=== PATIENT | female | born 2000 | race Hispanic/Latino ===

== ENCOUNTER 2022-06-15 06:12 | Emergency (ER) | payer SELFPAY ==
[2022-06-15] MEDS ORDERED: Mag-Al Plus 1200 MG/1200 MG/120 MG/30 ML UDCUP ONE (06:27)
[2022-06-15] MEDS ORDERED: Lidocaine Viscous Sol 2% 15 ml UD Cup ONE (06:28)
[2022-06-15 06:53] LABS: #Basophils 0.1 10x3/uL (0.0-0.2); #Eosinphils 0.2 10x3/uL (0.0-0.5); #Monocytes 0.8 10x3/uL (0.0-1.1); %Basophils 0.5 % (0.0-2.0); %Eosinophils 1.9 % (0.0-6.0); %Lymphocytes 26.7 % (18.0-47.0); %Monocytes 8.4 % (0.0-10.0); %Neutrophils 62.2 % (40.0-75.0); Hemoglobin 11.7 g/dL (12.0-15.5); Mean Corpuscular HGB CONC 31.9 g/dL (32.0-36.0); Mean Corpuscular Hemoglobin 25.4 pg (27.0-33.0); Mean Corpuscular Volume 79.8 fl (81.6-98.3); Mean Platelet Volume 11.7 fl (7.4-10.4); Platelet Count 191 10x3/uL (150-450); RBC Distribution Width 13.3 % (11.5-14.5); White Blood Cell (WBC) Count 9.7 10x3/uL (3.5-10.5)
[2022-06-15 07:21] LABS: ALT (SGPT) 31 U/L (8-55); AST (SGOT) 64 U/L (5-34); Albumin 4.1 g/dL (3.5-5.0); Alkaline Phosphatase 111 U/L (40-100); Anion Gap 16 mmol/L (10-20); BUN (Urea Nitrogen) 11 mg/dL (7.0-18.7); Bilirubin, Total 0.3 mg/dL (0.2-1.2); Calc. Creatinine Clearance 0 mL/min (70-130); Carbon Dioxide 19 mmol/L (22-29); Chloride 107 mmol/L (98-107); Estimated GFR 131; Globulin 3.7 g/dL (2.4-3.5); Glucose 100 mg/dL (70-105); Lipase 9 U/L (8-78); Potassium 3.6 mmol/L (3.5-5.1); Protein, Total 7.8 g/dL (6.0-8.3); Sodium 138 mmol/L (136-145)
[2022-06-15 07:38] LABS: BHCG - Serum Negative (NEGATIVE); Pregs Control Background? CLEAR/WHITE (CLR/WHITE); Pregs Control Bar Appear? YES (CONTROL BAR)
== END 2022-06-15 07:38 | disposition home or self-care (01) ==
LOC: CSHERS 06:12
DX: K29.00 Acute gastritis without bleeding (principal)
CPT/HCPCS: 80053; 83690; 84703; 85025; 99284

== ENCOUNTER 2024-02-14 18:15 | Inpatient (IN) | payer MEDICAID, OTHER, SELFPAY ==
[2024-02-14] MEDS ORDERED: hydrALAZINE 20 MG/ML VIAL SLOW IVP PRN ×2 (18:25→20:11)
[2024-02-14 18:38] VITALS: BMI 24.8
[2024-02-14] MEDS ORDERED: Acetaminophen 500 MG TAB PO PRN (19:20)
[2024-02-14 19:25] LABS: Fetal Membranes Rupture RUPTURE DETECTED (No Rupture)
[2024-02-14] MEDS ORDERED: Ondansetron PF 4 MG/2 ML Vial IVP PRN (20:11)
[2024-02-14] MEDS ORDERED: Promethazine HCl 25 MG/ML VIAL IM PRN (20:11)
[2024-02-14] MEDS ORDERED: Lidocaine 1% (PF) 30 ML VIAL SC PRN (20:11)
[2024-02-14] MEDS ORDERED: Diphenoxylate HCl/Atropine Tablet PO PRN (20:12)
[2024-02-14] MEDS ORDERED: Methylergonovine 0.2 MG/ML VIAL IM PRN (20:12)
[2024-02-14] MEDS ORDERED: Misoprostol 200 MCG TAB PR PRN (20:12)
[2024-02-14] MEDS ORDERED: Carboprost 250 MCG/ML AMP IM PRN (20:12)
[2024-02-14] MEDS ORDERED: Tranexamic Acid 1,000 MG/10 ML VIAL IVP PRN (20:12)
[2024-02-14] MEDS ORDERED: Oxytocin 30 units/NS 500 ML 500 ML IV SCH ×2 (20:15)
[2024-02-14] MEDS: Lactated Ringer's 1,000 ML IV SCH (20:47)
[2024-02-14] MEDS: Penicillin G Potassium 5 MILL.UNITS in Sodium Chloride 0.9% 100 ML IVPB SCH (20:47)
[2024-02-14 21:32] LABS: Hematocrit 32.3 % (34.9-44.5); Mean Corpuscular HGB CONC 34.1 g/dL (32.0-36.0); Mean Corpuscular Hemoglobin 27.9 pg (27.0-33.0); Mean Platelet Volume 13.7 fL (7.4-10.4); Platelet Count 130 10x3/uL (150-450); RBC Distribution Width 12.6 % (11.5-14.5); Red Blood Cell (RBC) Count 3.94 10x6/uL (3.90-5.03); White Blood Cell (WBC) Count 6.4 10x3/uL (3.5-10.5)
[2024-02-14] MEDS: Oxytocin 30 units/NS 500 ML 500 ML IV SCH (21:48)
[2024-02-14 22:07] LABS: HBsAg Index 0.22 S/CO (0-0.99); Hep B Surf Ag - L&D Non-Reactive S/CO (NonReactive)
[2024-02-14 22:08] LABS: Syphilis Antibody Nonreactive (Nonreactive); Syphilis Antibody Index 0.05 S/CO (<1.00 Non-Reactive)
[2024-02-15] MEDS: Penicillin G 2.5 MILL.units 2.5 MILL.UNITS in Premix 1 BAG IVPB SCH (01:09)
[2024-02-15] MEDS: fentaNYL 50 mcg/mL 1 mL Vial SLOW IVP PRN (02:36)
[2024-02-15] MEDS: Penicillin G Potassium 5 MILL.UNITS VIAL ONE (02:45)
[2024-02-15] MEDS: fentaNYL/Ropivacaine Epidural 100 ML ONE (05:03)
[2024-02-15] MEDS ORDERED: Acetaminophen 325 MG TAB PO PRN (05:31)
[2024-02-15] MEDS ORDERED: ePHEDrine Sulfate 50 MG/10 ML VIAL SLOW IVP PRN (05:31)
[2024-02-15] MEDS ORDERED: Moisturizing Cream (Eucerin) 113 GM JAR TOP PRN (05:31)
[2024-02-15] MEDS ORDERED: Ondansetron PF 4 MG/2 ML Vial IVP PRN (05:31)
[2024-02-15] MEDS ORDERED: diphenhydrAMINE 50 MG/ML VIAL IVP PRN (05:31)
[2024-02-15] MEDS ORDERED: Naloxone HCl 0.4 mg/ml Vial IVP PRN ×2 (05:31)
[2024-02-15] MEDS ORDERED: Promethazine HCl 25 MG/ML VIAL IM PRN (05:31)
[2024-02-15] MEDS ORDERED: Lactated Ringer's 500 ML IV PRN (05:31)
[2024-02-15] MEDS ORDERED: fentaNYL 2 mcg/Ropivacaine 0.2% Epidural 100 ML CADD EPIDURAL SCH (05:45)
[2024-02-15] MEDS ORDERED: Communication Order-Pharmacy FS SCH (05:45)
[2024-02-15] MEDS: Ibuprofen 800 MG TAB PO PRN (14:42)
[2024-02-15] MEDS ORDERED: Benzocaine-Menthol 82.5 ML CAN TOP PRN (14:59)
[2024-02-15] MEDS ORDERED: Milk Of Magnesia 30 ML UDCUP PO PRN (14:59)
[2024-02-15] MEDS ORDERED: Lanolin Ointment 7 GM TUBE TOP PRN (14:59)
[2024-02-15] MEDS ORDERED: Bisacodyl 10 MG SUPP PR PRN (14:59)
[2024-02-15] MEDS ORDERED: Preparation H Ointment 28 GM TUBE PR PRN (14:59)
[2024-02-15] MEDS ORDERED: hydrALAZINE 20 MG/ML VIAL SLOW IVP PRN (14:59)
[2024-02-15] MEDS: Ferrous Sulfate 325 MG TAB PO SCH (17:28)
[2024-02-15] MEDS: Docusate 100 MG CAP PO SCH (21:39)
[2024-02-15] MEDS: Ibuprofen 800 MG TAB PO SCH (21:39)
[2024-02-17] MEDS: Boostrix 0.5 ML (Tdap) VIAL (>/=7 yrs of age) IM ONE (07:31)
[2024-02-17 07:48] VITALS: BP 113/77; TEMP 98.1
== END 2024-02-17 16:00 | disposition home or self-care (01) | DRG 806 ==
LOC: CSHLD/OP 18:15 → CSHLD 19:31 → CSHPP 02-15 15:27
PROVIDERS: ADMIT Family Medicine; ATTEND Family Medicine
PROC: 10E0XZZ Delivery of Products of Conception, External Approach (ICD-10-PCS; principal; 2024-02-15)
PROC: 10H07YZ Insertion of Other Device into Products of Conception, Via Natural or Artificial Opening (ICD-10-PCS; 2024-02-15)
PROC: 0HQ9XZZ Repair Perineum Skin, External Approach (ICD-10-PCS; 2024-02-15)
DX: O42.013 Preterm premature rupture of membranes, onset of labor within 24 hours of rupture, third trimester (principal); O44.43 Low lying placenta NOS or without hemorrhage, third trimester; Z37.0 Single live birth; Z3A.36 36 weeks gestation of pregnancy; O24.425 Gestational diabetes mellitus in childbirth, controlled by oral hypoglycemic drugs; Z79.84 Long term (current) use of oral hypoglycemic drugs; O69.81X0 Labor and delivery complicated by cord around neck, without compression, not applicable or unspecified; O70.0 First degree perineal laceration during delivery
CPT/HCPCS: 36415; 36416; 51702; 82951; 84112; 85027; 86780; 86850; 86900; 86901; 87340; 99285; J2540; J2590; J3010; J7120